=== PATIENT | female | born 1985 | race African-American/Black ===

== ENCOUNTER 2019-04-21 10:46 | Emergency (ER) | payer OTHER ==
[~2019-04-21] VITALS: Ht 165.1 cm; Wt 52.2 kg
[2019-04-21 11:23] LABS: BILIRUBIN NEGATIVE (NEGATIVE); BLOOD 3+ (NEGATIVE); CLARITY SL CLOUDY (CLEAR); COLOR YELLOW (YELLOW); GLUCOSE NEGATIVE (NEGATIVE); KETONE NEGATIVE (NEGATIVE); LEUKO ESTERASE NEGATIVE (NEGATIVE); NITRITE NEGATIVE (NEGATIVE); PH 5.5 (5.0-9.0); SPECIFIC GRAVITY >= 1.030 (1.005-1.030); UROBILINOGEN 0.2 E.U./dl (0.2-1.0)
[2019-04-21 11:29] LABS: RBC TNTC rbc/hpf (0-2); URIC ACID CRYSTALS P
[2019-04-21] MEDS ORDERED: IBU800 MG PO (12:06)
[2019-04-21] MEDS ORDERED: ACETAMINOPHEN500 M4 PO (12:06)
== END 2019-04-21 12:10 | disposition home or self-care (01) ==
LOC: ED 10:46
PROVIDERS: Nurse Practitioner Family
DX: N94.6 Dysmenorrhea, unspecified (principal); R51 Headache; Z32.02 Encounter for pregnancy test, result negative

== ENCOUNTER 2019-08-02 05:28 | Emergency (ER) | payer OTHER ==
[~2019-08-02] VITALS: Ht 165.1 cm; Wt 56.7 kg
[~2019-08-02 05:28] MED LIST: ACETAMINOPHEN500 M4 PO; IBU800 MG PO
== END 2019-08-02 06:47 | disposition left against medical advice (07) ==
LOC: ED 05:28
DX: N94.9 Unspecified condition associated with female genital organs and menstrual cycle (principal); Z53.21 Procedure and treatment not carried out due to patient leaving prior to being seen by health care provider

== ENCOUNTER 2019-12-19 16:28 | Emergency (ER) | payer OTHER ==
[~2019-12-19] VITALS: Ht 165.1 cm; Wt 47.6 kg
== END 2019-12-19 17:20 | disposition left against medical advice (07) ==
LOC: ED 16:28
DX: R42 Dizziness and giddiness (principal)

== ENCOUNTER 2020-01-14 22:00 | Emergency (ER) | payer OTHER ==
[~2020-01-14] VITALS: Ht 165.1 cm; Wt 52.2 kg
== END 2020-01-15 01:08 | disposition left against medical advice (07) ==
LOC: ED 22:00
DX: Z00.00 Encounter for general adult medical examination without abnormal findings (principal); Z53.21 Procedure and treatment not carried out due to patient leaving prior to being seen by health care provider

== ENCOUNTER 2020-01-19 18:12 | Emergency (ER) | payer OTHER ==
[~2020-01-19] VITALS: Ht 165.1 cm; Wt 56.7 kg
== END 2020-01-19 19:03 | disposition left against medical advice (07) ==
LOC: ED 18:12
DX: Z00.00 Encounter for general adult medical examination without abnormal findings (principal); Z53.29 Procedure and treatment not carried out because of patient's decision for other reasons

== ENCOUNTER 2020-01-25 19:55 | Emergency (ER) | payer OTHER ==
[~2020-01-25] VITALS: Wt 49.9 kg
[2020-01-25 21:15] LABS: BILIRUBIN NEGATIVE (NEGATIVE); CLARITY CLEAR (CLEAR); COLOR YELLOW (YELLOW); GLUCOSE NEGATIVE (NEGATIVE); KETONE NEGATIVE (NEGATIVE)
[2020-01-25 21:16] LABS: BLOOD TRACE-INTACT (NEGATIVE); LEUKO ESTERASE NEGATIVE (NEGATIVE); NITRITE NEGATIVE (NEGATIVE); UROBILINOGEN 0.2 E.U./dl (0.2-1.0)
[2020-01-25 21:21] LABS: BACTERIA 1+; MUCOUS TRACE; RBC 0-2 rbc/hpf (0-2)
[2020-01-25 21:22] LABS: URINE AMPHETAMINES < 1000 (1000ng/ml); URINE BARBITURATES < 200 (200ng/ml); URINE BENZODIAZEPINES < 200 (200ng/ml); URINE CANNABINOIDS (THC) < 50 (50ng/ml); URINE COCAINE < 300 (300ng/ml); URINE METHADONE < 300 (300ng/ml); URINE OPIATES < 300 (300ng/ml)
[2020-01-25 21:23] LABS: URINE PHENCYCLIDINE < 25 (25ng/ml)
== END 2020-01-25 21:35 | disposition left against medical advice (07) ==
LOC: ED 19:55
PROVIDERS: Nurse Practitioner
DX: R41.82 Altered mental status, unspecified (principal); R60.0 Localized edema; Z88.8 Allergy status to other drugs, medicaments and biological substances; Z53.29 Procedure and treatment not carried out because of patient's decision for other reasons

== ENCOUNTER 2020-01-26 18:12 | Emergency (ER) | payer OTHER ==
[~2020-01-26] VITALS: Ht 165.1 cm; Wt 56.7 kg
== END 2020-01-26 22:00 | disposition home or self-care (01) ==
LOC: ED 18:12
DX: M79.671 Pain in right foot (principal); M79.672 Pain in left foot

== ENCOUNTER 2020-01-27 15:24 | Emergency (ER) | payer OTHER ==
[~2020-01-27] VITALS: Wt 54.4 kg
[2020-01-27 16:05] LABS: BASO % 0.6 % (0.0-1.0); EOS # 0.1 10*3/uL (0.0-0.4); HEMATOCRIT 31.5 % (37.0-47.0); LYMPH # 1.8 10*3/uL (1.3-4.4); LYMPH % 26.9 % (27.0-41.0); MEAN CELL VOLUME 87.5 fl (81.0-99.0); MEAN CORPUSCULAR HGB 27.2 pg (27.0-31.0); MEAN CORPUSCULAR HGB CONC 31.1 g/dl (33.0-37.0); MONO # 0.4 10*3/uL (0.1-1.0); MONO % 5.9 % (3.0-9.0); NEUT # 4.3 10*3/uL (2.3-7.9); NEUT % 64.4 % (47.0-73.0); PLATELET COUNT AUTOMATED 274 10*3/uL (130-400); RED CELL DISTRI WIDTH 17.4 % (0-14.5); WHITE BLOOD COUNT 6.7 10*3/uL (4.8-10.8)
[2020-01-27 16:25] LABS: ALBUMIN 3.5 gm/dl (3.1-4.5); ALKALINE PHOSPHATASE 74 U/L (45-117); BUN 10 mg/dl (7-24); CHLORIDE 107 mmol/L (98-107); CREATININE 0.51 mg/dL (0.55-1.02); SGOT/AST 12 IU/L (3-35); SGPT/ALT 17 U/L (12-78); SODIUM 140 mmol/L (136-145); TOTAL PROTEIN 7.2 gm/dL (6.4-8.2)
[2020-01-27 16:27] LABS: ETHYL ALCOHOL < 3.0 mg/dl (<3)
[2020-01-27 16:31] LABS: BILIRUBIN NEGATIVE (NEGATIVE); BLOOD 3+ (NEGATIVE); CLARITY TURBID (CLEAR); COLOR RED (YELLOW); GLUCOSE NEGATIVE (NEGATIVE); KETONE NEGATIVE (NEGATIVE); LEUKO ESTERASE 2+ (NEGATIVE); NITRITE NEGATIVE (NEGATIVE); UROBILINOGEN 0.2 E.U./dl (0.2-1.0)
[2020-01-27 16:33] LABS: THYROID STIM HORMONE (HS) 0.567 uIU/ml (0.358-4.75)
[2020-01-27 16:38] LABS: BACTERIA 2+; RBC TNTC rbc/hpf (0-2); URINE AMPHETAMINES < 1000 (1000ng/ml); URINE BARBITURATES < 200 (200ng/ml); URINE BENZODIAZEPINES < 200 (200ng/ml); URINE CANNABINOIDS (THC) < 50 (50ng/ml); URINE COCAINE < 300 (300ng/ml); URINE METHADONE < 300 (300ng/ml); URINE OPIATES < 300 (300ng/ml)
[2020-01-27 16:41] LABS: URINE PHENCYCLIDINE < 25 (25ng/ml)
== END 2020-01-28 01:20 | disposition home health service (06) ==
LOC: ED 15:24
PROVIDERS: Emergency Medicine
DX: F29 Unspecified psychosis not due to a substance or known physiological condition (principal); Z88.6 Allergy status to analgesic agent